=== PATIENT | male | born 1945 | race Two or more races ===

== ENCOUNTER → 2017-09-11 | Outpatient (CLI) | payer MEDICARE ==
--- NOTE | 2017-09-11 14:26 | RADIOLOGY REPORT PS360 ---
[id number] (RING)-3 VIEWS CLINICAL INDICATION: S/P RT 4TH FINGER INJURY ORDERING PHYSICIAN: Miguel Angel Santa MD PATIENT AGE: 71 years COMPARISON: None FINDINGS: No acute fracture or dislocation. Ring artifact obscures the mid aspect of the middle phalanx. 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
== END ==
LOC: RAD 10:59
DX: S69.91XA Unspecified injury of right wrist, hand and finger(s), initial encounter (principal)